=== PATIENT | male | born 1985 | race Caucasian/White ===

== ENCOUNTER 2018-10-29 04:15 | Emergency (ER) | payer OTHER ==
[~2018-10-29] VITALS: Ht 195.6 cm; Wt 136.1 kg
[2018-10-29 04:17] VITALS: BP 119/96
--- NOTE | 2018-10-29 04:17 | NUR ---
PT AFTAB JACKSON TO CHAIR E
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
[2018-10-29] MEDS ORDERED: IBUPROFEN 800 MG TAB PO ONE (04:30)
--- NOTE | 2018-10-29 04:33 | NUR ---
PT REFUSING PAIN MEDICATION AT THIS TIME.
[2018-10-29 04:43] VITALS: BP 119/96
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
== END 2018-10-29 04:43 ==
LOC: MED 04:15
DX: M54.5 Low back pain (principal); F10.129 Alcohol abuse with intoxication, unspecified; Y90.9 Presence of alcohol in blood, level not specified; V89.2XXA Person injured in unspecified motor-vehicle accident, traffic, initial encounter; Y93.89 Activity, other specified; Y92.488 Other paved roadways as the place of occurrence of the external cause; Y99.8 Other external cause status
CPT/HCPCS: 99283

== ENCOUNTER 2019-05-16 09:59 | Emergency (ER) | payer OTHER ==
[~2019-05-16] VITALS: Ht 195.6 cm; Wt 145.1 kg
[2019-05-16 10:04] VITALS: BP 137/86
--- NOTE | 2019-05-16 10:04 | NUR ---
Patient ambulated to bed 9. RN evaluating patient at bedside.
--- NOTE | 2019-05-16 10:07 | NUR ---
33 Y/O M WITH C/C OF SORE THROAT, WATERY EYES, RUNNY NOSE X1 WEEK. PER PT FAMILY IS SICK AT HOME. PT NKA. NO MEDICAL HX. NO RX. DENIES N/V/D AND/OR ANY OTHER SYMPTOM. SIDE RAIL X1.
--- NOTE | 2019-05-16 10:32 | NUR ---
Dr. Gonzalez is evaluating the patient at bedside.
[2019-05-16 10:57] VITALS: BP 137/86
--- NOTE | 2019-05-16 10:57 | NUR ---
Patient discharged with v/s stable. Written and verbal after care instructions given and explained. Patient alert, oriented and verbalized understanding of instructions. Ambulatory with steady gait. All questions addressed prior to discharge. ID band removed. Patient advised to follow up with PMD. Rx of AZITHROMYCIN given. Patient educated on indication of medication including possible reaction and side effects. Opportunity to ask questions provided and answered.
== END 2019-05-16 10:57 | disposition home or self-care (01) ==
LOC: MED 09:59
DX: J40 Bronchitis, not specified as acute or chronic (principal)
CPT/HCPCS: 99283

== ENCOUNTER 2019-06-15 13:55 | Emergency (ER) | payer OTHER ==
[~2019-06-15] VITALS: Ht 195.6 cm; Wt 145.1 kg
[2019-06-15 14:09] VITALS: BP 121/78
--- NOTE | 2019-06-15 15:29 | NUR ---
PT WHEELCHAIRED TO CHAIR B
--- NOTE | 2019-06-15 15:29 | NUR ---
SEEN AND EXAMINED BY DAVID WITH ORDERS AND CARRIED OUT.
--- NOTE | 2019-06-15 15:30 | NUR ---
CAME IN WITH C/O PAIN, SWELLING, REDNESS ON HIS RT FOOT AND BIG TOE STARTED THIS MORNING, NO TRAUMA NOR INJURY.
--- NOTE | 2019-06-15 15:30 | NUR ---
RESULT BACK AND NOTED BY ERMD AND FOR D/C
[2019-06-15] MEDS ORDERED: predniSONE 20 MG TAB PO ONE (15:40)
--- NOTE | 2019-06-15 15:40 | NUR ---
MEDICATED PER [facility] ORDER, PATIENT TOLERATED WELL.
[2019-06-15 15:57] VITALS: BP 121/78
--- NOTE | 2019-06-15 15:57 | NUR ---
Patient discharged with v/s stable. Written and verbal after care instructions given and explained. Patient alert, oriented and verbalized understanding of instructions. Ambulatory with steady gait. All questions addressed prior to discharge. ID band removed. Patient advised to follow up with PMD. Rx of PREDNISONE 20 MG, NAPROXEN 500MG given. Patient educated on indication of medication including possible reaction and side effects. Opportunity to ask questions provided and answered.
== END 2019-06-15 15:57 | disposition home or self-care (01) ==
LOC: MED 13:55
DX: M1A.9XX1 Chronic gout, unspecified, with tophus (tophi) (principal)
CPT/HCPCS: 73630; 99283; J7512

== ENCOUNTER 2019-10-16 08:49 | Emergency (ER) | payer OTHER ==
[~2019-10-16] VITALS: Ht 195.6 cm; Wt 99.8 kg
[2019-10-16 08:57] VITALS: BP 146/113
[2019-10-16] MEDS ORDERED: KETOROLAC 30 MG/ML VIAL IVP ONE (09:05)
[2019-10-16] MEDS ORDERED: NACL 0.9% 500 ML IV ONE (09:05)
[2019-10-16 09:21] LABS: BASOPHILS % (AUTO) 0.4 % (0.0-2.0); EOSINOPHILS # (AUTO) 0.2 K/uL (0-0.4); HEMATOCRIT 41.5 % (36-52); HEMOGLOBIN 13.8 g/dL (12.0-18.0); LYMPHOCYTES % (AUTO) 23.9 % (20.5-51.1); MEAN CORPUSCULAR HEMOGLOBIN 30 pg (27-31); MEAN CORPUSCULAR HGB CONC 33 g/dL (33-37); MEAN CORPUSCULAR VOLUME 90.3 fL (80-94); MONOCYTES # (AUTO) 0.5 K/uL (0.8-1.0); MONOCYTES % (AUTO) 6.6 % (1.7-9.3); NEUTROPHILS # (AUTO) 5.5 K/uL (1.8-7.7); NEUTROPHILS % (AUTO) 66.1 % (42.2-75.2); PLATELET COUNT (AUTO) 208 K/uL (140-450); RED CELL DISTRIBUTION WIDTH 13.2 % (11.6-13.7); WHITE BLOOD COUNT (AUTO) 8.3 K/uL (4.8-10.8)
[2019-10-16 09:38] LABS: ALBUMIN 3.4 g/dL (3.4-5.0); ANION GAP 10.9 (8-16); ASPARTATE AMINOTRANSFERASE 15 U/L (15-37); CARBON DIOXIDE 26.3 mmol/L (21-32); CHLORIDE 107 mmol/L (98-107); CREATININE 1.2 mg/dL (0.6-1.3); GFR ARICAN-AMERICAN 88 mL/min (>90); GLUCOSE 109 mg/dL (74-106); POTASSIUM 4.2 mmol/L (3.5-5.1); SODIUM SERUM 140 mmol/L (136-145); TOTAL BILIRUBIN 0.6 mg/dL (0.0-1.0); UREA NITROGEN, BLOOD 16 mg/dL (7-18)
[2019-10-16 09:42] LABS: ACETAMINOPHEN < 0.5 ug/ml (10-30); SALICYLATE < 2.8 mg/dL (2.8-20.0)
[2019-10-16] MEDS ORDERED: NACL 0.9% 1,000 ML IV ONE (10:20)
[2019-10-16 10:44] LABS: BARBITURATE, URINE NEGATIVE ng/ml (NEG <=200); BENZODIAZEPINE, URINE NEGATIVE ng/mL (NEG <=200)
[2019-10-16 10:45] LABS: CANNABINOID, URINE NEGATIVE ng/mL (NEG <=50); COCAINE, URINE NEGATIVE ng/mL (NEG <=300); OPIATE, URINE NEGATIVE ng/mL (NEG <=2000); PHENCYCLIDINE SCREEN,URINE NEGATIVE ng/mL (NEG <=25)
[2019-10-16 11:38] VITALS: BP 142/110
== END 2019-10-16 11:38 | disposition home or self-care (01) ==
LOC: MED 08:49
DX: S06.0X9A Concussion with loss of consciousness of unspecified duration, initial encounter (principal); S16.1XXA Strain of muscle, fascia and tendon at neck level, initial encounter; S39.012A Strain of muscle, fascia and tendon of lower back, initial encounter; R03.0 Elevated blood-pressure reading, without diagnosis of hypertension; W17.89XA Other fall from one level to another, initial encounter; Y93.89 Activity, other specified; Y92.59 Other trade areas as the place of occurrence of the external cause; Y99.8 Other external cause status
CPT/HCPCS: 36415; 70450; 72125; 72131; 80053; 80305; 85025; 93005; 96374; 99285; G0480; G0482; J1885; J7030